=== PATIENT | male | born 1975 | race Caucasian/White ===

== ENCOUNTER 2022-07-19 17:57 | Emergency (ER) | payer SELFPAY ==
[~2022-07-19] VITALS: Ht 180.3 cm; Wt 108.9 kg
--- NOTE | 2022-07-19 18:17 | NUR ---
DR QUINN AT BEDSIDE
[2022-07-19] MEDS ORDERED: ACETAMINOPHEN ES 500 MG TABLET ONE (18:23)
[2022-07-19] MEDS ORDERED: IBUPROFEN 600 MG TABLET ONE (18:24)
[2022-07-19] MEDS ORDERED: IBUPROFEN 600 MG TABLET PO ONE (18:30)
[2022-07-19] MEDS ORDERED: ACETAMINOPHEN ES 500 MG TABLET PO ONE (18:30)
--- NOTE | 2022-07-19 18:37 | NUR ---
PATIENT TAKEN TO CT BY STORMY [facility]IA [facility]
--- NOTE | 2022-07-19 18:53 | NUR ---
[facility]
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
[2022-07-19] MEDS ORDERED: IBUP-1953 PO (19:36)
--- NOTE | 2022-07-19 19:45 | NUR ---
Manuel ames. He is picking up PT.
--- NOTE | 2022-07-19 20:42 | NUR ---
Patient discharged to home in stable condition. Written and verbal after care instructions given. Patient verbalizes understanding of instruction. Friend Manuel at bedside to interpret in lyn
[2022-07-19 20:43] VITALS: BP 121/71
== END 2022-07-19 20:44 | disposition home or self-care (01) ==
LOC: ER 17:57
DX: S89.91XA Unspecified injury of right lower leg, initial encounter (principal); R51.9 Headache, unspecified; I10 Essential (primary) hypertension; Y08.89XA Assault by other specified means, initial encounter; Y93.89 Activity, other specified; Y92.89 Other specified places as the place of occurrence of the external cause; Y99.8 Other external cause status
CPT/HCPCS: 70450-TC; 73564-TC